=== PATIENT | female | born 1995 | race Caucasian/White ===

== ENCOUNTER 2016-12-17 20:08 | Emergency (ER) | payer BC ==
[~2016-12-17] VITALS: Ht 154.9 cm; Wt 90.0 kg
[2016-12-17 20:11] VITALS: BP 128/69; PULSE 100; TEMP 98.4
[2016-12-17] MEDS ORDERED: RT ADVAIR 128 DISKUS IH (20:15)
[2016-12-17] MEDS ORDERED: OCUFLOX OPHTH DR5 ML OU (20:58)
== END 2016-12-17 21:00 | disposition home or self-care (01) ==
LOC: COL.ER 20:08
DX: H10.213 Acute toxic conjunctivitis, bilateral (principal); T50.905A Adverse effect of unspecified drugs, medicaments and biological substances, initial encounter

== ENCOUNTER 2017-12-25 07:24 | Emergency (ER) | payer BC ==
[~2017-12-25] VITALS: Ht 157.5 cm; Wt 94.1 kg
[~2017-12-25 07:24] MED LIST: OCUFLOX OPHTH DR5 ML OU; RT ADVAIR 128 DISKUS IH
[2017-12-25 07:27] VITALS: TEMP 97.9
[2017-12-25] MEDS ORDERED: CIPRODEX OT (07:39)
[2017-12-25 07:43] VITALS: BP 123/84; PULSE 97
[2017-12-26] MEDS ORDERED: TYLENOL W/COD1 UDTAB PO (04:09)
[2017-12-26] MEDS ORDERED: AMOXICILLIN 50500 MG PO ×2 (04:09→13:07)
== END 2017-12-25 07:47 | disposition home or self-care (01) ==
LOC: COL.ER 07:24
DX: H60.93 Unspecified otitis externa, bilateral (principal); J45.909 Unspecified asthma, uncomplicated; Z88.1 Allergy status to other antibiotic agents; Z79.51 Long term (current) use of inhaled steroids

== ENCOUNTER 2017-12-26 03:34 | Emergency (ER) | payer BC ==
[~2017-12-26] VITALS: Ht 157.5 cm; Wt 94.1 kg
[~2017-12-26 03:34] MED LIST changes: +CIPRODEX OT
[2017-12-26 03:38] VITALS: BP 113/72; TEMP 98.1
[2017-12-26] MEDS ORDERED: AMOXICILLIN 50500 MG PO ×2 (04:09→13:07)
[2017-12-26] MEDS ORDERED: TYLENOL W/COD1 UDTAB PO (04:09)
[2017-12-26 04:39] VITALS: PULSE 80
== END 2017-12-26 04:40 | disposition home or self-care (01) ==
LOC: COL.ER 03:34
DX: H66.93 Otitis media, unspecified, bilateral (principal); H60.93 Unspecified otitis externa, bilateral; H92.03 Otalgia, bilateral; J45.909 Unspecified asthma, uncomplicated; Z79.51 Long term (current) use of inhaled steroids
CPT/HCPCS: J0696

== ENCOUNTER 2020-10-29 07:46 | Emergency (ER) | payer BC ==
[~2020-10-29] VITALS: Ht 157.5 cm; Wt 86.4 kg
[~2020-10-29 07:46] MED LIST changes: +AMOXICILLIN 50500 MG PO; +TYLENOL W/COD1 UDTAB PO
[2020-10-29 08:05] VITALS: TEMP 98.2
[2020-10-29 08:20] LABS: COLLECTION METHOD CLEAN CATCH
[2020-10-29 08:27] LABS: MUCOUS Present /lpf; PH 6 (5-8); SQUAMOUS EPITHELIAL 0-2 /hpf; URINE APPEARANCE Clear; URINE BACTERIA None Seen /hpf; URINE BILIRUBIN Negative (NEGATIVE); URINE BLOOD 1+ (NEGATIVE); URINE COLOR Straw; URINE GLUCOSE Negative (NEGATIVE); URINE KETONE Negative (NEGATIVE); URINE LEUKOCYTE ESTERASE Negative (NEGATIVE); URINE NITRATE Negative (NEGATIVE); URINE PROTEIN(semi-quant) Negative (NEGATIVE); URINE RBC 0-2 /hpf; URINE UROBILINOGEN Negative (NEGATIVE)
[2020-10-29 08:42] LABS: BASO % 0.7 % (0.0-2.0); EOS # 0.2 (0.0-0.7); EOS % 3.1 % (0-4.0); GRAN # 4.5 (1.4-6.5); HEMATOCRIT 41.8 % (37.0-47.0); HEMOGLOBIN 13.9 g/dl (12.5-16.0); LYMPH # 0.5 (1.2-3.4); LYMPH % 7.9 % (20.0-51.0); MEAN CELL VOLUME 87 fl (80.0-100.0); MEAN CORPUSCULAR HEMOGLOBIN 29 pg (27.0-31.0); MEAN CORPUSCULAR HGB CONC 33 g/dl (33.0-37.0); MEAN PLATELET VOLUME 9.2 fl (7.4-10.4); MONO # 0.6 (0.1-0.6); MONO % 10.8 % (1.7-9.3); PLATELET COUNT 370 K/mm3 (130-400); RED BLOOD COUNT 4.78 M/mm3 (4.10-5.30); REDCELL DISTRIBUTION WIDTH-CV 12.9 % (11.5-14.5)
[2020-10-29 08:51] LABS: ALBUMIN 4.4 gm/dL (3.5-5.0); BILIRUBIN,TOTAL 0.2 mg/dL (0.0-1.0); CALCIUM 10.5 mg/dL (8.4-10.2); CREATININE, serum 0.61 (0.52-1.25); TOTAL PROTEIN 8.1 gm/dL (6.4-8.2)
[2020-10-29 09:20] VITALS: BP 107/71; PULSE 97
== END 2020-10-29 09:20 | disposition home or self-care (01) ==
LOC: COL.ER 07:46
PROVIDERS: Family Medicine
DX: U07.1 COVID-19 (principal); J45.909 Unspecified asthma, uncomplicated; Z88.1 Allergy status to other antibiotic agents
CPT/HCPCS: J7120